=== PATIENT | female | born 1985 | race African-American/Black ===

== ENCOUNTER 2023-10-13 10:15 | Emergency (ER) | payer MEDICAID ==
[~2023-10-13] VITALS: Ht 175.3 cm; Wt 104.0 kg
[2023-10-13 10:19] VITALS: TEMP 98.5; O2SAT 98
[2023-10-13] MEDS: BACITRACIN ZINC OINT UDPKT TOP ONE (11:00)
[2023-10-13] MEDS: LIDOCAINE HCL 1% 20ML VIAL (Pyxis) INJ INFIL ONE (11:00)
[2023-10-13 11:16] VITALS: BP 138/110; PULSE 90; RESP 16
[2023-10-13] MEDS: IBUPROFEN 600MG TABLET PO ONE (11:16)
[2023-10-13] MEDS: TETANUS, DIPHTHERIA, PERTUSSIS VAC/PF 0.5ML (>10YR OLD) IM ONE (11:25)
== END 2023-10-13 13:41 | disposition home or self-care (01) ==
LOC: ER 10:41
DX: S81.812A Laceration without foreign body, left lower leg, initial encounter (principal); S80.811A Abrasion, right lower leg, initial encounter; S09.90XA Unspecified injury of head, initial encounter; F20.9 Schizophrenia, unspecified; Y08.89XA Assault by other specified means, initial encounter; Y93.89 Activity, other specified; Y92.89 Other specified places as the place of occurrence of the external cause; Y99.8 Other external cause status
CPT/HCPCS: 70450; 90715; 12002; 90471; 99285; J3490; Z7610